=== PATIENT | female | born 1950 | race Caucasian/White ===

== ENCOUNTER 2016-11-01 06:54 | Observation (INO) | payer OTHER ==
[2016-11-01] MEDS ORDERED: LIDOCAINE 1% 30 ML SDV ONE (07:06)
[2016-11-01] MEDS ORDERED: BUPIVACAINE/EPI 0.5% 30 ML SDV ONE (07:06)
[2016-11-01] MEDS ORDERED: LIDOCAINE 1% 2 ML INJ ONE (07:56)
[2016-11-01] MEDS ORDERED: fentaNYL 250 MCG/5 ML INJ ONE (09:08)
[2016-11-01] MEDS ORDERED: PROPOFOL/EMULSION 500 MG/50 ML BOTTLE IV ONE (09:08)
[2016-11-01] MEDS ORDERED: LIDOCAINE 2% 5 ML SDV ONE (10:02)
[2016-11-01] MEDS ORDERED: ONDANSETRON 4 MG/2 ML VIAL ONE (10:02)
[2016-11-01] MEDS ORDERED: ROCURONIUM 100 MG/10 ML VIAL ONE (10:02)
[2016-11-01] MEDS ORDERED: DEXAMETHASONE 4 MG/ML VIAL ONE (10:02)
[2016-11-01] MEDS ORDERED: KETOROLAC 30 MG/1 ML SDV ONE (10:06)
[2016-11-01] MEDS ORDERED: SUGAMMADEX SODIUM 200 MG/2 ML VIAL IVP ONE (10:32)
[2016-11-01] MEDS ORDERED: HYDROCODONE/APAP 5/325 TAB PO PRN (10:57)
[2016-11-01] MEDS ORDERED: ACETAMINOPHEN 500 MG TAB PO PRN (10:57)
[2016-11-01] MEDS ORDERED: IBUPROFEN 800 MG TAB PO PRN (10:57)
[2016-11-01] MEDS ORDERED: ZOLPIDEM TARTRATE 5 MG TAB PO PRN (10:57)
[2016-11-01] MEDS ORDERED: ONDANSETRON 4 MG/2 ML VIAL IVP PRN (10:57)
--- NOTE | 2016-11-01 11:15 | POSTOPPROG ---
Post Op Note Date of Operation: 11/01/16 Surgeon: Andrew Diaz Money Laundering Investigator: Yanira Christian PA-C Anesthesia: GET(General Endotracheal) Pre-op Diagnosis: recurrent ventral hernia Post-op Diagnosis: same Indication: recurrent ventral hernia Procedure: Open Ventral Hernia repair Findings: large ventral hernia, prior mesh Inf/Abcess present in the surg proc area at time of surgery?: No EBL: Minimal Complications: None
[2016-11-01] MEDS ORDERED: fentaNYL 100 MCG/2 ML INJ ONE (11:31)
[2016-11-01] MEDS: KETOROLAC 30 MG/1 ML SDV IVP SCH ×2 (12:16→16:59)
[2016-11-01] MEDS: CETIRIZINE 10 MG TAB PO SCH (16:13)
[2016-11-01] MEDS: DOCUSATE SODIUM 100 MG CAP PO SCH ×2 (16:13→21:26)
[2016-11-01] MEDS: OXYCODONE/APAP 5/325 TAB PO PRN ×2 (17:08→21:58)
[2016-11-01] MEDS ORDERED: CYCLOBENZAPRINE 10 MG TAB PO SCH (21:00)
[2016-11-01] MEDS: glipiZIDE 10 MG TAB PO SCH (21:25)
[2016-11-01] MEDS: metFORMIN HCL 500 MG TAB PO SCH (21:25)
[2016-11-01] MEDS: Apremilast [Otezla] 30 MG PO SCH (21:27)
[2016-11-02] MEDS: KETOROLAC 30 MG/1 ML SDV IVP SCH
[2016-11-02] MEDS: OXYCODONE/APAP 5/325 TAB PO PRN ×3 (03:05→13:46)
[2016-11-02] MEDS ORDERED: LEVOTHYROXINE 137 MCG TAB PO SCH (06:00)
--- NOTE | 2016-11-02 06:13 | GOP ---
[f rep st] OPERATIVE REPORT DATE OF OPERATION: 11/01/2016 SURGEON: Andrew Diaz MD INTRAN[employer] DEVELOPER: Yanira Christian PA-C. ANESTHESIOLOGIST: , Dr. Encarnacion. PREOPERATIVE DIAGNOSIS: Recurrent incarcerated ventral hernia. POSTOPERATIVE DIAGNOSIS: Recurrent incarcerated ventral hernia. PROCEDURE PERFORMED: Open repair of incarcerated ventral hernia with a 15 x 20 cm Parietex mesh. FINDINGS: INDICATIONS: A 66-year-old female, status post 2 prior laparoscopic ventral herniorrhaphies. Both these procedures have failed. The patient presents with a symptomatic recurrence with incarcerated small bowel. She is undergoing surgical repair at this time. Risks and benefits were explained of bleeding, infection, bowel injury, recurrence. All questions were answered. She desires to proceed . DESCRIPTION OF PROCEDURE: General anesthesia was induced. An upper midline vertical incision was c reated between the 2 prior laparoscopic trocar incisions. A 10 cm solitary defect was present with incarcerated small bowel and omentum using electrocautery. The hernia sac was dissected away from t he fascial edges, allowing it to be opened with entrance in the abdominal cavity. Extensive abdomin al wall adhesions were all lysed along for the visceral contents and reduced back into the abdominal cavity. The hernia sac was cleared back to healthy-appearing fascial edges. Also, fascial adhesio ns were all taken down inclusive of omentum, small bowel and transverse colon. The defect measured approximately 10 cm. The fascia was attenuated throughout the midline portion. The tissue was able to be reapproximated nicely without undue tension in transverse orientation. A 10 x 20 cm Parietex mesh was inserted in the abdominal cavity. Superficial skin flaps were widely undermined. Using m ultiple interrupted horizontal mattress sutures, the mesh was anchored far laterally to the hernial defect. The fascia was closed in transverse fashion with a running PDS suture incorporating the mes h into the closure. Excellent coverage was obtained with multiple centimeters of overlap at all poi nts radially. Satisfactory hemostasis was assured. The defect was closed in layers with absorbable suture by Dermabond. The patient was taken recovery uneventfully. /[id number]/MODL
--- NOTE | 2016-11-02 08:10 | SOAPPROG ---
SOAP Progress Note Assessment/Plan: Assessment: POD 1 s/p open incarcerated ventral hernia repair. Good night. pain controlled. Up to bathroom without difficulty. Appetite good. Required use of 2L NC- O2 dropped to 83% even with use of CPAP. afeb, VSS, A&O x3, abd soft and nontender , incision clean and dry. Plan: d/c home today. Order home O2 (2L NC cont) until follow up to reassess. Plan: 11/02/16 08:09 11/02/16 08:10 Objective: Vital Signs Temp Pulse Resp BP Pulse Ox 36.6 C 68 14 115/69 97 11/02/16 03:11 11/02/16 03:11 11/02/16 03:11 11/02/16 03:11 11/02/16 03:11 11/01/16 11/02/16 11/03/16 05:59 05:59 05:59 Intake Total 1525 Output Total 1825 Balance -300 ICD10 Worksheet Patient Problems: Problems Problem Status Onset Recurrent ventral hernia with incarceration Acute - ICD10 Problem Qualifiers (1) Recurrent ventral hernia with incarceration
[2016-11-02] MEDS: glipiZIDE 10 MG TAB PO SCH (08:19)
[2016-11-02] MEDS: CETIRIZINE 10 MG TAB PO SCH (08:20)
[2016-11-02] MEDS: DOCUSATE SODIUM 100 MG CAP PO SCH (08:20)
[2016-11-02] MEDS: metFORMIN HCL 500 MG TAB PO SCH (08:20)
[2016-11-02] MEDS ORDERED: ATENOLOL 100 MG TAB PO SCH (09:00)
[2016-11-02] MEDS ORDERED: ASCORBIC ACID 500 MG TAB PO SCH (09:00)
[2016-11-02] MEDS ORDERED: DULoxetine 60 MG CAP PO SCH (09:00)
[2016-11-02] MEDS ORDERED: Herbals/Supplements -Info Only PO SCH (09:00)
[2016-11-02] MEDS ORDERED: CALCIUM CARBONATE 500 MG TAB PO SCH (09:00)
[2016-11-02] MEDS ORDERED: PRAMIPEXOLE 1 MG TAB PO SCH (09:00)
[2016-11-02] MEDS ORDERED: MULTIVITAMINS 1 EACH TAB PO SCH (09:00)
[2016-11-02] MEDS ORDERED: LOSARTAN POTASSIUM 50 MG TAB PO SCH (09:00)
[2016-11-02] MEDS ORDERED: PANTOPRAZOLE SODIUM 40 MG TAB PO SCH (09:00)
[2016-11-02 09:27] VITALS: BP 126/66; PULSE 71; RESP 20; TEMP 98.4; O2SAT 96
--- NOTE | 2016-11-02 10:35 | SOAPPROG ---
SOAP Progress Note Assessment/Plan: Assessment: doing great. no overnight complaints. min pain. still hypoxic ( low 80's) with ambulation/rest - has happened with all prior surgeries. avss. comfortable. incision clean. appropriate swelling. home today. needs cont home oxygen - will arrange compressor. f/u as scheduled. Plan: 11/02/16 10:34 Objective: Vital Signs Temp Pulse Resp BP Pulse Ox 36.9 C 71 20 126/66 H 96 11/02/16 08:00 11/02/16 08:00 11/02/16 08:00 11/02/16 08:00 11/02/16 08:00 11/01/16 11/02/16 11/03/16 05:59 05:59 05:59 Intake Total 1525 Output Total 1825 Balance -300 ICD10 Worksheet Patient Problems: Problems Problem Status Onset Recurrent ventral hernia with incarceration Acute
[2016-11-02] MEDS: Apremilast [Otezla] 30 MG PO SCH (11:17)
== END 2016-11-02 15:45 | disposition home or self-care (01) ==
LOC: INTOOBSV 06:54 → F3E 06:54
PROVIDERS: ADMIT Surgery; ATTEND Surgery
PROC: 0WUF0JZ Supplement Abdominal Wall with Synthetic Substitute, Open Approach (ICD-10-PCS; principal; 2016-11-01 08:45)
DX: K43.6 Other and unspecified ventral hernia with obstruction, without gangrene (principal); R06.09 Other forms of dyspnea; E11.9 Type 2 diabetes mellitus without complications; I10 Essential (primary) hypertension; E03.9 Hypothyroidism, unspecified; G47.33 Obstructive sleep apnea (adult) (pediatric); E78.5 Hyperlipidemia, unspecified; M45.9 Ankylosing spondylitis of unspecified sites in spine; K21.9 Gastro-esophageal reflux disease without esophagitis; M79.7 Fibromyalgia; E66.09 Other obesity due to excess calories; Z68.41 Body mass index [BMI] 40.0-44.9, adult; Z22.322 Carrier or suspected carrier of Methicillin resistant Staphylococcus aureus
CPT/HCPCS: 49566; 49568; G0378; C1781; J1100; J1885; J2405; J2704; J3010